=== PATIENT | male | born 1950 | race Caucasian/White ===

== ENCOUNTER → 2017-05-24 | Outpatient (CLI) | payer OTHER ==
--- NOTE | 2017-05-24 18:42 | CPEEG ---
[f rep st] ELECTROENCEPHALOGRAM EEG. DATE OF STUDY: 05/24/2017 DATE OF INTERPRETATION: 05/24/2017. INTERPRETATION: Normal EEG during wakefulness and drowsiness. There were no potentially epileptogenic abnormalities present during the recording. REPORT: This EEG contains 9 Hz alpha activity to the posterior head regions. There was no abnormal activation at rest, during photic stimulation, or hyperventilation. The patient briefly became drowsy during the study. There was no abnormal activation during drowsiness or during times of arousal. /[id number]/MODL MTDD
== END ==
LOC: FCPNEURO 13:19
PROVIDERS: ATTEND Psychiatry & Neurology Neurology
DX: R20.2 Paresthesia of skin (principal); R42 Dizziness and giddiness

== ENCOUNTER 2018-07-09 07:14 | Day surgery (SDC) | payer OTHER ==
[2018-07-09] MEDS ORDERED: diphenhydrAMINE 25 MG CAP PO ONE ×2 (07:16→08:05)
[2018-07-09] MEDS ORDERED: FAMOTIDINE 20 MG TAB PO ONE (07:16)
[2018-07-09] MEDS ORDERED: NS 1,000 ML IV ONE (07:16)
[2018-07-09] MEDS ORDERED: MIDAZOLAM 2 MG/2 ML VIAL IVP ONE (07:16)
[2018-07-09] MEDS ORDERED: BENZOCAINE UNIT DOSE SPRAY HURRICAINE MM ONE (07:16)
[2018-07-09] MEDS ORDERED: DIAZEPAM 5 MG TAB PO ONE (07:16)
[2018-07-09] MEDS ORDERED: ASPIRIN EC 325 MG TAB PO ONE ×2 (07:16→08:05)
[2018-07-09] MEDS ORDERED: fentaNYL 100 MCG/2 ML INJ IVP ONE (07:16)
[2018-07-09] MEDS ORDERED: DIAZEPAM 5 MG TAB ONE (08:05)
[2018-07-09] MEDS ORDERED: FAMOTIDINE 20 MG TAB ONE (08:05)
[2018-07-09 08:18] LABS: PLATELET COUNT 238 10^3/uL (150-400)
--- NOTE | 2018-07-09 08:28 | PDHPUP ---
History & Physical Update H&P update statement: This history and physical update is based on an assessment of the patient which was completed after admission or registration (within 24 hours), but prior to the surgery/procedure. H&P update: H&P reviewed & patient examined, no change in patient's condition since H&P completed
--- NOTE | 2018-07-09 08:28 | PDPROPOC ---
Sedation Plan of Care Sedation Plan of Care: vital signs stable, mental status noted, patient educated of risks, benefits, alternatives, patient can tolerate sedation Planned drugs: fentanyl, midazolam Mallampati Score: Class 1 Mallampati Reference Image: Patient passed 3-3-2 rule?: Yes
[2018-07-09 08:34] LABS: INR 1.01 (0.83-1.16); PROTIME(PATIENT) 13.5 SEC (12.0-15.0)
[2018-07-09] MEDS ORDERED: MIDAZOLAM 2 MG/2 ML VIAL ONE ×2 (08:37→09:07)
[2018-07-09] MEDS ORDERED: LIDOCAINE 1% 300 MG/30 ML SDV ONE (08:37)
[2018-07-09] MEDS ORDERED: VERAPAMIL 5 MG/2 ML VIAL ONE (08:37)
[2018-07-09] MEDS ORDERED: fentaNYL 100 MCG/2 ML INJ ONE ×2 (08:37→09:07)
[2018-07-09] MEDS ORDERED: IOPAMIDOL (ISOVUE-370) 150 ML BTL IV ONE (08:38)
[2018-07-09] MEDS ORDERED: HEPARIN 10,000 UNIT/10 ML MDV (1,000 UNIT/ML) ONE (08:38)
--- NOTE | 2018-07-09 09:14 | CPEKG ---
Test Reason : OPEN Blood Pressure : / mmHG Vent. Rate : 052 BPM Atrial Rate : 052 BPM P-R Int : 164 ms QRS Dur : 102 ms QT Int : 464 ms P-R-T Axes : 026 013 055 degrees QTc Int : 432 ms Sinus rhythm Probable left ventricular hypertrophy Confirmed by Anshu Magana ([id number]) on 07/09/2018 9:14:15 AM Referred By: Confirmed By:Anshu Magana
--- NOTE | 2018-07-09 10:16 | PDDXCAT ---
Diagnostic Cath Note - . Date: 07/09/18 Integrated Circuit Fabricator: John Indication: other (Aortic regurgitation with dyspnea on exertion) - Procedure Access: right wrist Procedure: left heart catheterization, coronary angiography, left ventriculogram , right heart catheterization, other (Aortic injection) - Materials Left Heart Cath size: 5F Left Heart Cath materials: JL3.5, JR4.0, pigtail Right Heart Cath size: 5F Right Heart Cath materials: PWP catheter - Findings-Left Heart Catheterization LM: Normal: Short LAD: Normal LCX: Normal RCA: Dominant: Normal EDP: 12 mm of mercury LVEF: 65 Wall motion: Normal - Findings-Right Heart Catheterization RA: 5 mm of mercury RV: 50/8 mm of mercury PA: 48/13 mm of mercury PAOP: 13 mm of mercury Complications: None Estimated blood loss: <50ml Closure method: TR Band Assessment: Mild pulmonary hypertension. Mild aortic insufficiency. Angiographically normal coronary arteries. Normal LV systolic function with normal filling pressures. Plan: Complete evaluation for primary pulmonary hypertension including V/Q scan, metabolic evaluation. Patient Problems: Problems Problem Status Onset Aortic insufficiency Acute Pulmonary hypertension Acute
--- NOTE | 2018-07-09 10:48 | ECHO ---
[email or web address] [address] [address] Main: [phone] Fax: Transesophageal Echocardiography Name: NATALIE PRATT MR#: [id number] Study Date: 07/09/2018 Study Time: 09:07 AM Date of : 1950 Age: 68 year(s) Height: ( ) Weight: ( ) BSA: Gender: Male Examination: ALEC Indication: Pre Cath Image Quality: Contrast: Requested by: Cholo Lopez Heart Rate: Rhythm: Normal sinus rhythm BP: / Procedure Staff Brick Pointer: Himanshu Kebede RDCS Reading Physician: Cholo Lopez MD Requesting Provider: ALEC Exam Details Conclusions: No pericardial effusion. Mild aortic insufficiency. Mild mitral regurgitation. Normal left ventricular size and function trileaflet aortic valve Measurements: Chambers Valvular Assessment AV/MV Valvular Assessment TV/PV Normal Normal Normal Name Value Range Name Value Range Name Value Range Additional Measurements: Findings: Left Ventricle: Normal global systolic LV function. No regional wall motion abnormality. Left Atrium: The left atrium is normal in size. Left Atrial Appendage: Good color flow doppler in the left atrial appendage. No thrombus in left appendage. Right Atrium: The right atrium is normal in size. Mitral Valve: The mitral valve is normal in appearance. Mild mitral valve regurgitation is present. Aortic Valve: Patient: NATALEI PRATT Study Date: 07/09/2018 Page 1 of 2 09:07 AM The aortic valve is tri-leaflet. Mild aortic valve regurgitation is present. The aortic regurgitation is eccentric and directed towards the mitral valve. Tricuspid Valve: The tricuspid valve is normal in appearance and function. Pulmonic Valve: The pulmonic valve is normal in appearance and function. Aorta: The aorta is normal. Pericardium: No pericardial effusion. l1n (No Signature Object) Patient: NATALIE PRATT Study Date: 07/09/2018 Page 2 of 2 09:07 AM [id number]
== END 2018-07-09 15:28 | disposition home or self-care (01) ==
LOC: FCATH 07:14
PROVIDERS: ATTEND Internal Medicine Interventional Cardiology
DX: I27.20 Pulmonary hypertension, unspecified (principal); I35.1 Nonrheumatic aortic (valve) insufficiency; E78.5 Hyperlipidemia, unspecified
CPT/HCPCS: 71046; 78582; 93005; 93312; 93460; 93567; A9540; A9558; C1769; J1200; J1644; J2250; J3010; Q9967